=== PATIENT | male | born 1985 | race Caucasian/White ===

== ENCOUNTER 2017-08-29 12:58 | Emergency (ER) | payer SELFPAY ==
[~2017-08-29] VITALS: Ht 177.8 cm; Wt 142.4 kg
[~2017-08-29 12:58] MED LIST: FLEXERIL10 MG PO; NAPROXEN500 M1 PO; ULTRACET1 TABLET PO
[2017-08-29] MEDS ORDERED: KEFLEX500 MG PO (15:40)
[2017-08-29] MEDS ORDERED: BACTRIM,SEPT1 TABLET PO (15:40)
[2017-08-29] MEDS ORDERED: PERCOCET 5/31 TABLET PO (15:40)
[2017-08-29 16:05] VITALS: BP 147/84
== END 2017-08-29 16:09 | disposition home or self-care (01) ==
LOC: EME 12:58
PROC: 0H90XZZ Drainage of Scalp Skin, External Approach (ICD-10-PCS; principal; 2017-08-29)
DX: L02.811 Cutaneous abscess of head [any part, except face] (principal); F17.200 Nicotine dependence, unspecified, uncomplicated
CPT/HCPCS: 99281; 99284